=== PATIENT | male | born 1960 | race Caucasian/White ===

== ENCOUNTER 2024-09-07 09:00 | Day surgery (SDC) | payer OTHER, SELFPAY ==
[2024-09-07] VITALS (11 sets, daily range): BP systolic 99–139; BP diastolic 60–96; PULSE 67–88; RESP 10–20; TEMP 36.3–36.6; O2SAT 94–98; BMI 29.7
[2024-09-07] MEDS: fentaNYL CIT INJ 50 mCg/ML AMP 2ML (ASD USE ONLY) IV (11:40)
[2024-09-07] MEDS: MEPERIDINE INJ 25 MG/ML VIAL (ASD USE ONLY) 50 MG IV (11:42)
[2024-09-07] MEDS: SODIUM CHLORIDE 0.9% 500 ML 500 ML 20 ML IV (11:42)
[2024-09-07] MEDS: MIDAZOLAM INJ 1 MG/ML VIAL 2 ML (ASD USE ONLY) 2 MG IV (11:46)
== END 2024-09-07 12:40 | disposition home or self-care (01) ==
PROVIDERS: PCP Internal Medicine; Referring Provider Specialist; Visit Provider Specialist
PROC: 0DBE8ZX Excision of Large Intestine, Via Natural or Artificial Opening Endoscopic, Diagnostic (ICD-10-PCS; CPT 45380; principal; 2024-09-07 10:00)
DX: Z12.11 Encounter for screening for malignant neoplasm of colon (principal); K57.30 Diverticulosis of large intestine without perforation or abscess without bleeding; D17.79 Benign lipomatous neoplasm of other sites; K64.9 Unspecified hemorrhoids
CPT/HCPCS: 45378; A4649; J2175; J2250; J3010; J7040

== ENCOUNTER → 2024-11-08 | Outpatient (CLI) | payer OTHER, SELFPAY ==
--- NOTE | 2024-11-08 16:47 | EKG_ITS ---
[facility] Test Date: 2024-11-08 Pat Name: ADRIANE SOSA Department: Room: - Gender: Male Home Visits Nurse: LYNDSEY : 1960 Requested By: Misa Santos Order Number: [id number] Reading MD: Misa Santos Measurements Intervals [place] Rate: 94 P: 35 RI: 158 QRS: 4 QRSD: 96 T: 16 QT: 335 QTc: 419 Interpretive Statements SINUS RHYTHM POSSIBLE LEFT ATRIAL ENLARGEMENT [-0.1mV P WAVE IN V1/V2] Compared to ECG 12/02/2021 14:08:24 No significant changes /store/S0/[id number].pdf
== END | disposition home or self-care (01) ==
PROVIDERS: PCP Internal Medicine; Referring Provider Internal Medicine; Visit Provider Internal Medicine
DX: R07.9 Chest pain, unspecified (principal)
CPT/HCPCS: 93005

== ENCOUNTER 2025-02-12 16:58 | Emergency (ER) | payer OTHER, SELFPAY ==
--- NOTE | 2025-02-12 17:02 | EKG_ITS ---
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
[2025-02-12 17:08] VITALS: BP 117/83; PULSE 82; RESP 16; TEMP 36.7; O2SAT 97
--- NOTE | 2025-02-12 17:12 | XR_ITS ---
Examination: PA lateral chest 2 views Technique: Upright PA lateral chest 2 views Date and time: February 12, 2025, 1742 hrs. Indications: Chest pain today. Findings: Mild prominence left ventricle. No pneumonia or pulmonary edema. Moderate thoracic spondylosis. Impression: No active disease.
--- NOTE | 2025-02-12 17:12 | PD.EDRME ---
Rapid Medical Screening Exam E Arrival date/time: 02/12/25 16:58 64-year-old male with no known medical history presents to the emergency room with a chief complaint of sternal chest pain and palpitation x 1 day. Patient states he has had this chest pain intermittently for the last 2 months I have greeted and performed a focused initial assessment of this patient. A comprehensive ED assessment and evaluation of the patient, analysis of all test results, and completion of the medical decision making process will be conducted by additional ED providers. Chief Complaint: Arrhythmia/Palpitations Time Seen by Provider: 02/12/25 17:09 Vital signs: Vital Signs Temperature 98.1 F 02/12/25 17:08 Pulse Rate 82 02/12/25 17:08 Respiratory Rate 16 02/12/25 17:08 Blood Pressure 117/83 02/12/25 17:08 Pulse Oximetry (%) 97 02/12/25 17:08 Oxygen Delivery Method Room Air 02/12/25 17:08 Vital signs reviewed by provider: Yes
[2025-02-12 17:41] LABS: Basophils # (Auto) 0.0 Thou/mm3 (0.0-0.2); Basophils % (Auto) 0 % (0-2.5); Eosinophils # (Auto) 0.1 Thou/mm3 (0.0-0.5); Eosinophils % (Auto) 1 % (0-10); Hematocrit 43.0 % (41.0-53.0); Hemoglobin 15.0 g/dL (13.5-16.0); Immature Granulocytes Auto 0.02 Thou/mm3 (0.00-0.00); Lymphocytes # (Auto) 1.8 Thou/mm3 (1.0-4.8); Lymphocytes % (Auto) 21 % (10-50); Mean Corpuscular HGB Conc 34.9 g/dl (31.0-37.0); Mean Corpuscular Hemoglobin 31.3 pg (25.0-35.0); Mean Corpuscular Volume 90 fL (80-100); Monocytes # (Auto) 0.6 Thou/mm3 (0.0-0.8); Monocytes % (Auto) 7 % (0-12); Neutrophils # (Auto) 6.1 Thou/mm3 (1.8-7.7); Neutrophils % (Auto) 71 % (37-80); Nucleated Red Blood Cell # 0.00 Thou/mm3 (0.00-0.00); Nucleated Red Blood Cell % 0 /100 WBC (0); Platelet Count 177 Thou/mm3 (140-440); RDW Standard Deviation 44.3 fL (35.1-43.9); Red Blood Count 4.79 Miln/mm3 (4.50-5.90); White Blood Count 8.7 Thou/mm3 (3.8-10.6)
[2025-02-12 17:58] LABS: Collection Type, Urine Clean Catch; Squamous Epithelial Cell,Urine 0 /hpf (0-5)
[2025-02-12 18:06] LABS: B-Type Natriuretic Peptide < 20 pg/mL (0-100)
[2025-02-12 18:09] LABS: Alanine Aminotransferase 22 U/L (10-49); Albumin, Serum 4.3 gm/dL (3.4-4.8); Albumin/Globulin Ratio 1.7 (1.2-2.2); Alkaline Phosphatase 67 U/L (46-116); Anion Gap 11 (7-16); Aspartate Amino Transferase 24 U/L (0-34); BUN/Creatinine Ratio 12 Ratio (12-20); Bilirubin,Total 0.8 mg/dL (0.3-1.2); Blood Urea Nitrogen 12 mg/dL (9-23); Calcium 9.6 mg/dL (8.3-10.6); Calcium (Corrected) 9.6 mg/dL (8.5-10.1); Carbon Dioxide 29.1 mMol/L (20.0-31.0); Chloride 105 mMol/L (98-107); Creatinine (Component) 1.0 mg/dL (0.6-1.3); Estimated Creatinine Clearance 83.0 mL/min (>60); Globulin 2.5 gm/dL (2.3-3.5); Glucose 79 mg/dL (74-106); Magnesium 2.2 mg/dL (1.6-2.6); Osmolality,Calculated 287 (275-295); Potassium 3.8 mMol/L (3.4-5.1); Sodium 145 mMol/L (136-145); Total Protein 6.8 gm/dL (5.7-8.2); Troponin I < 0.020 ng/mL (0.0-0.045); eGFR > 60 See Note
[2025-02-12 18:12] LABS: INR 1.0 (0.9-1.3); Partial Thromboplastin Time 24.9 Seconds (22.0-36.0); Prothrombin Time 11.1 Seconds (9.0-12.2)
[2025-02-12 18:16] LABS: Bilirubin,Urine Negative (Negative); Blood,Urine Negative (Negative); Clarity,Urine Clear (Clear/Hazy); Color,Urine Yellow (Lt Yel-Yel); Culture Indicated,Urine Not Indicated; Glucose, Urine Negative (Negative); Ketones,Urine 1+ (Negative); Leukocyte Esterase,Urine Negative (Negative); Nitrite,Urine Negative (Negative); PH,Urine 6.0 (5.0-7.0); Protein,Urine Negative (Neg - Trace); RBC,Urine 2 /hpf (0-3); Specific Gravity,Urine 1.027 (1.001-1.035); Urobilinogen,Urine Negative mg/dL (0.0-1.0); WBC,Urine 1 /hpf (0-5)
--- NOTE | 2025-02-12 20:05 | EDNOTE_ITS ---
ED Arrhythmia Palp. RME/HPI General Chief Complaint: Arrhythmia/Palpitations Stated Complaint: PALPITATIONS, LIGHTHEADED Time Seen by Provider: 02/12/25 17:09 Arrival date/time: 02/12/25 16:58 RME / HPI RME / HPI narrative: 02/12/25 16:58 64-year-old male with no known medical history presents to the emergency room with a chief complaint of sternal chest pain and palpitation x 1 day. Patient states he has had this chest pain intermittently for the last 2 months I have greeted and performed a focused initial assessment of this patient. A comprehensive ED assessment and evaluation of the patient, analysis of all test results, and completion of the medical decision making process will be conducted by additional ED providers. ------ See MDM for Dr. Medrano's HPI documentation. Related Data Home Medications ?Medication ?Instructions ?Recorded ?Confirmed No Known Home Medications 11/13/18 04/0 09/28 Allergies Allergy/AdvReac Type Severity Reaction Status Date / Time diphenhydramine (From Allergy Severe Agitated Verified 02/12/25 17:01 Benadryl) Review of Systems Review of Systems Systems Reviewed: All systems reviewed, normal except as documented Past Medical History Past Medical History NEUROLOGIC: Positive Neurological Disorders and Migraine; Negative Seizures CARDIAC: Negative Cardiac Disorders or Congestive Heart Failure RESPIRATORY: Positive Sleep Apnea; Negative Chronic Obstructive Pulmonary Disease (COPD) GASTROINTESTINAL: Positive Hemorrhoids GENITOURINARY: Negative Genitourinary Disorders or Renal Disease MUSCULOSKELETAL: Positive Arthritis ENDOCRINE: Negative Diabetes Mellitus Type 1 or Diabetes Mellitus Type 2 HEMATOLOGIC: Negative Anemia OTHER HISTORY: Negative Blood Transfusions or Anesthesia Reactions Social History SMOKING STATUS: Never smoker ED Exam Narrative Physical exam: See MDM for Dr. Medrano's physical exam documentation. Course Course Course Narrative: CXR is ordered for determining the etiology of palpitations. Quality Measures none Orders Category Date Time Status EKG (ED ONLY) *Do not use* NOW Care 02/12/25 17:03 Completed EKG (ED Only) Stat Exams 02/12/25 17:02 Draft XR chest 2V Stat Exams 02/12/25 17:12 Completed B-Type Natriuretic Peptide Stat Lab 02/12/25 17:24 Completed CBC Stat Lab 02/12/25 17:24 Completed Comprehensive Metabolic Panel Stat Lab 02/12/25 17:24 Completed Magnesium Stat Lab 02/12/25 17:24 Completed Partial Thromboplastin Time Stat Lab 02/12/25 17:24 Completed Prothrombin Time with INR Stat Lab 02/12/25 17:24 Completed Troponin I Stat Lab 02/12/25 17:24 Completed Urinalysis, C/S if Indicated Stat Lab 02/12/25 17:55 Completed Vital Signs Vital signs: Vital Signs Temperature 98.1 F 02/12/25 17:08 Pulse Rate 82 02/12/25 17:08 Respiratory Rate 16 02/12/25 17:08 Blood Pressure 117/83 02/12/25 17:08 Pulse Oximetry (%) 97 02/12/25 17:08 Oxygen Delivery Method Room Air 02/12/25 17:08 Arrhythmia/Palpitations MDM Narrative MDM Narrative:: This section includes all my notes and documentations, including HPI, PE, and ED course. Dawson Medrano MD HPI: 64yo male with no significant past medical history here with intermittent palpitations for the last couple months. No cough or fever. No alcohol or illicit drug use. No unusual fatigue or malaise. No syncope or near syncope. No nausea or vomiting. No shortness of breath. No unusual leg pain or swelling. No other complaints reported. ROS: All negative except as documented in HPI. Physical Exam: General: Alert and oriented. No acute distress when remaining still. Eyes: Conjunctivae and lids clear. ENT: No nasal congestion. Neck: Supple. Heart: RRR. Lungs: No respiratory distress. Good air movement. No rhonchi, wheezing, rales. Abdomen: Soft and nontender. Skin: Warm and dry. Neuro: Alert and oriented X 3. I reviewed all diagnostic test results. My interpretation of the EKG is sinus rhythm with nonspecific ST-T changes. My interpretation of the chest x-ray is NAD. Blood tests and urine tests are unremarkable. At this point, diagnoses include: Palpitations with unclear etiology Recommended more outpatient cardiac workup. Based on my best medical judgment, made decision no further evaluation or treatment indicated at this time. Patient understands and agrees to the discharge instructions customized and printed, see below. Discharge instructions from Dr. Medrano: 1. After extensive evaluation, there is no life-threatening condition. Such as heart attack or pneumothorax (collapsed lung). 2. But this doesn't mean you do not have any underlying heart condition(s). 3..See a private doctor on 02/13/2025 for recheck. To make sure there is no serious underlying heart condition, ask to help you get more tests for your heart that cannot be done here in the ER. Such as Holter Monitor (cardiac monitoring at home from a day to even a month), heart stress test (on treadmill or with medication), echocardiogram (imaging of your heart structures), heart catherization (checking for blockages in your heart arteries), and a referral to see a Doctor Chiropractic. 4. Seek immediate medical care with worsening or with any concerns. Dawson Medrano MD Patient data External records reviewed:: [facility] previous records (Per chart review, patient has no previous ED visits or admissions to this facility.) Clinical information provided by:: patient Social determinants that could affect healthcare access:: none Patient has the following chronic illnesses:: none How is presenting disease/condition affected by chronic disease/condition?: no chronic disease Evaluation data The following diagnostics were reviewed and interpreted by me:: lab results, radiology exam(s) and EKG tracing(s) (My interpretation of the EKG is: Sinus rhythm (94 bpm) with nonspecific ST-T changes. Dawson Medrano MD) Lab and/or radiology exams considered but not ordered:: none Interpretation Summary: I reviewed all diagnostic test results. My interpretation of the EKG is sinus rhythm with nonspecific ST-T changes. My interpretation of the chest x-ray is NAD. Blood tests and urine tests are unremarkable. Medications / Prescriptions Medications or Prescriptions considered but not ordered:: none Medication administrations:: none Consultations Consultation(s) initiated? (list below): No Diagnosis Differential diagnosis arrhythmia/palpitations: palpitations, anxiety, sinus tachycardia, artial fibrillation, artial flutter and ventricular premature beats Most likely diagnosis given after review of the tests above:: Palpitations with unclear etiology Admission Indicated Admission indicated?: not indicated Explain why admission is indicated or not indicated:: With no condition needing emergent intervention, there was no indication for adm ission. Admission Request Was there a request for admission?: No Disposition Plan Disposition Plan: Discharge Discharge Attestation Discharge Attestation: The patient and all family members were given an opportunity to ask questions and understood the discharge instructions. Discharge instructions specifically effects, indications for sooner follow up or return to the emergency department, and the expected course of current diagnosis. Patient condition: Stable Discharge Plan Plan Patient Disposition: HOME (Self Care) Prescriptions/Referrals Prescriptions/Med Rec: No Action No Known Home Medications Referrals: Misa Santos MD [Primary Care Provider, Nephrology] - In 1 week Problem List Clinical Impression: Palpitations Patient/Caregiver Discharge Instructions Discharge Activity: activity as tolerated Education Materials: ED Palpitations Additional Instructions: Discharge instructions from Dr. Medrano: 1. After extensive evaluation, there is no life-threatening condition.? Such as heart attack or pneumothorax (collapsed lung). 2. But this doesn't mean you do not have any underlying heart condition(s). 3..See a private doctor on 02/13/2025 for recheck. To make sure there is no serious underlying heart condition, ask to help you get more tests for your heart that cannot be done here in the ER.? Such as Holter Monitor (cardiac monitoring at home from a day to even a month), heart stress test (on treadmill or with medication), echocardiogram (imaging of your heart structures), heart catherization (checking for blockages in your heart arteri es), and a referral to see a Doctor Chiropractic. 4. Seek immediate medical care with worsening or with any concerns.? Print Language: Persian Stand Alone Forms: Christina Award Info., Patient Portal Info Letter
[2025-02-12 20:24] VITALS: BP 127/73; PULSE 57; RESP 18; O2SAT 98
== END 2025-02-12 20:25 | disposition home or self-care (01) ==
PROVIDERS: Nurse Practitioner Family; Emergency Provider Emergency Medicine; PCP Internal Medicine
DX: R00.2 Palpitations (principal); R07.2 Precordial pain
CPT/HCPCS: 36415; 71046; 80053; 81001; 83735; 83880; 84484; 85025; 85610; 85730; 93005; 99283

== ENCOUNTER 2025-02-18 22:09 | Inpatient (IN) | payer OTHER, SELFPAY ==
[2025-02-18 22:09] VITALS: BMI 27.1
--- NOTE | 2025-02-18 22:12 | EKG_ITS ---
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
[2025-02-18 22:15] VITALS: BP 139/82; PULSE 78; RESP 18; TEMP 36.4; O2SAT 96
--- NOTE | 2025-02-18 22:22 | XR_ITS ---
Examination: AP chest single view Technique: AP portable upright chest single view Date and time: February 18, 2025 1030 hrs., Comparison 02/12/2025 Indications: Onset chest pain today. Findings: Mild prominence left ventricle Ectatic thoracic aorta. No pneumonia or pulmonary edema Moderate osteopenia Impression: No pneumonia or pulmonary edema
--- NOTE | 2025-02-18 22:23 | PD.EDRME ---
Rapid Medical Screening Exam RME Arrival date/time: 02/18/25 22:09 This is a case of 64-year-old male with no medical history came in in the emergency room due to chest pain and palpitation today patient states that he has chest pain on and off with palpitation for 1 month already and waiting to be seen by the command and control officer recurrence of the symptoms this patient decided to sought consult here in the emergency room no other symptoms no shortness of breath Chief Complaint: Arrhythmia/Palpitations Time Seen by Provider: 02/18/25 22:10 Vital signs: Vital Signs Temperature 97.6 F 02/18/25 22:15 Pulse Rate 78 02/18/25 22:15 Respiratory Rate 18 02/18/25 22:15 Blood Pressure 139/82 H 02/18/25 22:15 Pulse Oximetry (%) 96 02/18/25 22:15 Oxygen Delivery Method Room Air 02/18/25 22:15
[2025-02-18 22:43] VITALS: PULSE 85
[2025-02-18 22:44] LABS: Basophils # (Auto) 0.0 Thou/mm3 (0.0-0.2); Basophils % (Auto) 0 % (0-2.5); Eosinophils # (Auto) 0.2 Thou/mm3 (0.0-0.5); Eosinophils % (Auto) 2 % (0-10); Hematocrit 42.1 % (41.0-53.0); Hemoglobin 14.9 g/dL (13.5-16.0); Immature Granulocytes Auto 0.02 Thou/mm3 (0.00-0.00); Lymphocytes # (Auto) 2.1 Thou/mm3 (1.0-4.8); Lymphocytes % (Auto) 29 % (10-50); Mean Corpuscular HGB Conc 35.4 g/dl (31.0-37.0); Mean Corpuscular Hemoglobin 31.6 pg (25.0-35.0); Mean Corpuscular Volume 89 fL (80-100); Monocytes # (Auto) 0.6 Thou/mm3 (0.0-0.8); Monocytes % (Auto) 8 % (0-12); Neutrophils # (Auto) 4.4 Thou/mm3 (1.8-7.7); Neutrophils % (Auto) 60 % (37-80); Nucleated Red Blood Cell # 0.00 Thou/mm3 (0.00-0.00); Nucleated Red Blood Cell % 0 /100 WBC (0); Platelet Count 158 Thou/mm3 (140-440); RDW Standard Deviation 44.3 fL (35.1-43.9); Red Blood Count 4.71 Miln/mm3 (4.50-5.90); White Blood Count 7.3 Thou/mm3 (3.8-10.6)
[2025-02-18 22:58] LABS: D-Dimer < 250 ng/mL (<600)
[2025-02-18 22:59] LABS: B-Type Natriuretic Peptide 31 pg/mL (0-100)
--- NOTE | 2025-02-18 23:02 | EDNOTE_ITS ---
ED Arrhythmia Palp. RME/HPI General Chief Complaint: Arrhythmia/Palpitations Stated Complaint: HEART PALPITATIONS Time Seen by Provider: 02/18/25 22:10 Arrival date/time: 02/18/25 22:09 RME / HPI RME / HPI narrative: 02/18/25 22:09 This is a case of 64-year-old male with no medical history came in in the emergency room due to chest pain and palpitation today patient states that he has chest pain on and off with palpitation for 1 month already and waiting to be seen by the hr representative recurrence of the symptoms this patient decided to sought consult here in the emergency room no other symptoms no shortness of breath DR. LANG MAIN ED EVALUATION: Patient evaluated for new onset palpitations on 02/12/2025. Patient reports skipping in which patient becomes lightheadedness and syncopal state lasting 60 seconds. Reports mild chest discomfort. Pain is worse when assuming upright position. No diaphoresis, nausea, or vomiting. No flu-like symptoms. Cardiac risk-factors negative for Diabetes, HTN, Cholesterol, and Tobacco, although does report positive family history of heart disease. PE risk factors negative for long-distance travel, surgery, prior DVT or hormonal therapy. Allergies: Benadryl. PMH: unremark PSH: Noncontributory. Social: Nonsmoker, nondrinker, no illicit drug abuse. Related Data Home Medications ?Medication ?Instructions ?Recorded ?Confirmed No Known Home Medications 11/13/18 04/09/28 Allergies Allergy/AdvReac Type Severity Reaction Status Date / Time diphenhydramine (From Allergy Severe Agitated Verified 02/18/25 22:11 Benadryl) Review of Systems Review of Systems Systems Reviewed: All systems reviewed, normal except as documented Past Medical History Past Medical History NEUROLOGIC: Positive Neurological Disorders and Migraine RESPIRATORY: Positive Sleep Apnea GASTROINTESTINAL: Positive Hemorrhoids MUSCULOSKELETAL: Positive Musculoskeletal Disorders and Arthritis Surgical History SURGICAL: Positive Abdominal Surgery and Knee Sx ED Exam Narrative Physical exam: GEN. APPEARANCE: The patient is alert awake oriented X-3 in no distress, lying down comfortably, does not look ill/toxic. Patient has good eye contact. Patient is cooperative. C/o occasional palpitations. VITALS: All vitals were reviewed and the pulse ox is 96% on room air which is normal according to my interpretation. HEENT: Normocephalic, atraumatic. Pupils are equal and reactive. Oral mucosa is moist. Patent Nares NECK: Supple, nontender, no thyromegaly, no meningismus, no JVD, no step offs CHEST: Symmetrical, atraumatic, and with equal expansion , Nontender on palpation no deformity and no crepitus. CARDIOVASCULAR: Occasional extrasystoles no murmur or gallop rub. LUNGS: Clear to auscultation bilaterally with symmetrical chest rise. No laboring tachypnea or wheezing. No intercostal subcostal retraction. No rales and no rhonchi. ABDOMEN: Soft, flat, nontender to palpation, no guarding or rebound tenderness. There are no abnormal masses palpated. Active and normal bowel sounds. EXTREMITIES: No palpable calf tenderness. No edema. No cyanosis. Patient is able to move all 4 extremities well, with full ROM and good CSM. SKIN: Warm and dry, no jaundice or rashes noted. MUSCULOSKELETAL: No lubar or midline bony tenderness. There is no CVA tenderness. No paraspinal muscle spasm or tenderness. NEURO: Patient is GORMAN x 4, Cranial nerves II through XII grossly intact. There is no focal neurologic deficits noted. GCS is 15, PNS and ACCORDION MAKER appear grossly intact. PSYCHIATRIC: Patient is in normal mood and affect, cooperative, no SI or HI or hallucinations. Course Course Course Narrative: CXR was ordered for determining the etiology of shortness of breath. Quality Measures none Orders Category Date Time Status EKG (ED ONLY) *Do not use* NOW Care 02/18/25 22:12 Completed EKG (ED Only) Stat Exams 02/18/25 22:12 Draft XR chest 1V portable Stat Exams 02/18/25 22:22 Completed BNP [B-Type Natriuretic Peptide] Stat Lab 02/18/25 22:31 Completed CBC Stat Lab 02/18/25 22:31 Completed CMP [Comprehensive Metabolic Panel] Stat Lab 02/18/25 22:31 Received D-Dimer Stat Lab 02/18/25 22:31 Completed TSH [Thyroid Stimulating Hormone] Stat Lab 02/18/25 22:31 Received Troponin I Stat Lab 02/18/25 22:31 Received Urinalysis Stat Lab 02/18/25 22:23 Ordered Vital Signs Vital signs: Vital Signs Temperature 97.6 F 02/18/25 22:15 Pulse Rate 78 02/18/25 22:15 Respiratory Rate 18 02/18/25 22:15 Blood Pressure 139/82 H 02/18/25 22:15 Pulse Oximetry (%) 96 02/18/25 22:15 Oxygen Delivery Method Room Air 02/18/25 22:15 Arrhythmia/Palpitations MDM Narrative MDM Narrative:: Scribe Attestation: I, Zandra Whelan, am scribing for and in the presence of Dr. Lang. Provider Notation: Although this document has been carefully reviewed, there may still be some phonetic and other typographical errors. These errors are purely grammatical due to imperfections in the software program and should not be construed in any way to compromise the substance of the patient's medical care during this visit. Patient evaluated for new onset palpitations on 02/12/2025. Patient reports skipping in which patient becomes lightheadedness and syncopal state lasting 60 seconds. Please see PE findings. Laboratory markers demonstrate normal WBC, no anemia or thrombocytopenia. Low normal potassium, normal renal function, and undetected Troponin. UA without UTI. EKG demonstrates occasional PVC's and multiple trigeminy. No chest pain reported although sustained monomorphic sustained ventricular tachycardia. Amiodarone protocol initiated. Patient remained hemodynamically stable. Consulted hospitalist who agrees to admit. Patient data External records reviewed:: [facility] previous records (Reviewed prior ED records from 02/12/25. Patient was seen for Palpitations.) Clinical information provided by:: patient Social determinants that could affect healthcare access:: none Patient has the following chronic illnesses:: Migraine, Sleep Apnea, Hemorrhoids, Arthritis How is presenting disease/condition affected by chronic disease/condition?: uneffected by Evaluation data The following diagnostics were reviewed and interpreted by me:: lab results, radiology exam(s) and EKG tracing(s) (EKG shows normal sinus rhythm at 82, no acute ST msegment changes, axis leftward, occasional ventricular ectopy, intervals are normal, per my interpretation.) Lab and/or radiology exams considered but not ordered:: None Interpretation Summary: RADIOLOGY Chest X-Ray: Findings: Mild prominence left ventricle Ectatic thoracic aorta. No pneumonia or pulmonary edema Moderate osteopenia Impression: No pneumonia or pulmonary edema. Medications / Prescriptions Medications or Prescriptions considered but not ordered:: None Medication administrations:: See above if any Consultations Consultation(s) initiated? (list below): Yes Consultation #1 (Physician, Specialty, Details): Hospitalist made aware of the patient?s HPI, PMHx, lab and/or radiology results. Treatment plan was discussed. Will admit for further evaluation and management. Accepts patient for admission. Time: 23:44 Consultation #2 (Physician, Specialty, Details): Dr. Link made aware of the patient?s HPI, PMHx, lab and/or radiology results. Discussed treatment plan. Will consult an admission to the hospitalist. Time: 23:53 Diagnosis Differential diagnosis arrhythmia/palpitations: palpitations, anxiety, sinus tachycardia, artial fibrillation, artial flutter, ventricular premature beats, supraventricular tachycardia, ventricular tachycardia and WPW Most likely diagnosis given after review of the tests above:: Ventricular tachycardia Admission Indicated Admission indicated?: indicated Explain why admission is indicated or not indicated:: Ventricular tachycardia Admission Request Was there a request for admission?: Yes Admission Attestation Admission request attestation: Discussed case with [] from Hospitalist service regarding admission. Discussed patients ED course, exam findings, labs, and radiology results. The Hospitalist [agrees,declines] to accept the patient for admission. Disposition Plan Disposition Plan: Admit Discharge Plan Plan Patient Disposition: Admit Acute Care w/in Hospital Problem List Clinical Impression: Ventricular tachycardia
[2025-02-18 23:04] LABS: Alanine Aminotransferase 21 U/L (10-49); Albumin, Serum 4.2 gm/dL (3.4-4.8); Albumin/Globulin Ratio 1.7 (1.2-2.2); Alkaline Phosphatase 82 U/L (46-116); Anion Gap 12 (7-16); Aspartate Amino Transferase 27 U/L (0-34); BUN/Creatinine Ratio 13 Ratio (12-20); Bilirubin,Total 0.5 mg/dL (0.3-1.2); Blood Urea Nitrogen 12 mg/dL (9-23); Calcium 9.5 mg/dL (8.3-10.6); Calcium (Corrected) 9.5 mg/dL (8.5-10.1); Carbon Dioxide 25.7 mMol/L (20.0-31.0); Chloride 106 mMol/L (98-107); Creatinine (Component) 0.9 mg/dL (0.6-1.3); Estimated Creatinine Clearance 92.2 mL/min (>60); Globulin 2.5 gm/dL (2.3-3.5); Glucose 127 mg/dL (74-106); Osmolality,Calculated 288 (275-295); Potassium 3.5 mMol/L (3.4-5.1); Sodium 144 mMol/L (136-145); Thyroid Stimulating Hormone 1.74 uIU/mL (0.55-4.78); Total Protein 6.7 gm/dL (5.7-8.2); Troponin I < 0.020 ng/mL (0.0-0.045); eGFR > 60 See Note
[2025-02-18 23:14] LABS: Collection Type, Urine Voided; Squamous Epithelial Cell,Urine 0 /hpf (0-5)
[2025-02-18 23:18] LABS: Bilirubin,Urine Negative (Negative); Blood,Urine Negative (Negative); Clarity,Urine Clear (Clear/Hazy); Color,Urine Yellow (Lt Yel-Yel); Glucose, Urine Negative (Negative); Ketones,Urine Negative (Negative); Leukocyte Esterase,Urine Negative (Negative); Nitrite,Urine Negative (Negative); PH,Urine 6.0 (5.0-7.0); Protein,Urine Negative (Neg - Trace); RBC,Urine 1 /hpf (0-3); Specific Gravity,Urine 1.026 (1.001-1.035); Urobilinogen,Urine Negative mg/dL (0.0-1.0); WBC,Urine < 1 /hpf (0-5)
[2025-02-18 23:25] LABS: Amphetamine/Methamp Scrn,U Negative (Negative); Barbiturate Screen,Urine Negative (Negative); Benzodiazepines Screen,Urine Negative (Negative); Benzoylecgonine Screen, Ur Negative (Negative); Fentanyl Screen,Urine Negative (Negative); Opiate Screen,Urine Negative (Negative); THC Screen,Urine Negative (Negative)
[2025-02-18 23:28] LABS: Alcohol, Blood Medical < 3.0 mg/dL (0-10.0)
[2025-02-18] MEDS: SODIUM CHLORIDE 0.9% 1000 ML 1,000 ML 999 ML IV (23:34)
[2025-02-18 23:49] VITALS: BP 146/93; PULSE 79; RESP 17; TEMP 36.6; O2SAT 97
[2025-02-19] VITALS (10 sets, daily range): BP systolic 103–152; BP diastolic 58–92; PULSE 54–101; RESP 14–23; TEMP 36.1–36.4; O2SAT 96–98; BMI 28.4
[2025-02-19] MEDS: AMIODARONE 150 MG IVPB 150 MG/100 ML BAG 600 MG IV (00:03)
[2025-02-19] MEDS: AMIODARONE 360 MG IVPB 360 MG/200 ML BAG 33.333 MG IV (00:16)
[2025-02-19 00:24] LABS: Magnesium 1.9 mg/dL (1.6-2.6)
--- NOTE | 2025-02-19 00:27 | ECHO_ITS ---
Transthoracic Echo Report Ht (in): 72 Wt (lb): 200 Exam Location: Echo Lab Status: Inpatient Family Consumer Science Teacher: Tatiana Bales Indications: Procedure Performed: BP: 108 / 69 HR: 61 MEASUREMENTS (Male / Female) Normal Values 2D ECHO LV Diastolic Diameter PLAX 4.6 cm 4.2 - 5.9 / 3.9 - 5.3 cm LV Systolic Diameter PLAX 2.8 cm IVS Diastolic Thickness 1.2 cm 0.6 - 1.0 / 0.6 - 0.9 cm LVPW Diastolic Thickness 1.2 cm 0.6 - 1.0 / 0.6 - 0.9 cm LV Relative Wall Thickness 0.5 LVOT Diameter 2.0 cm LA Volume Index 23.2 cm?/m? 16 - 28 cm?/m? Ascending Aorta Diameter 3.4 cm M-MODE AV Cusp Separation MM 1.8 cm DOPPLER AV Peak Velocity 119.0 cm/s AV Peak Gradient 5.7 mmHg AV Mean Gradient 3.0 mmHg AV Velocity Time Integral 26.8 cm AI Peak Velocity 235.0 cm/s AI Peak Gradient 22.1 mmHg AI Pressure Half Time 789.0 ms LVOT Peak Velocity 92.4 cm/s LVOT Peak Gradient 3.4 mmHg LVOT Velocity Time Integral 20.4 cm LVOT Cardiac Index 1809.5 cm?/min?m? AV Area Cont Eq vti 2.4 cm? AV Area Cont Eq pk 2.4 cm? MV Area PHT 4.4 cm? Mitral E Point Velocity 76.4 cm/s Mitral A Point Velocity 72.1 cm/s Mitral E to A Ratio 1.1 LV E' Lateral Velocity 10.0 cm/s Mitral E to LV E' Lateral Ratio 7.6 LV E' Septal Velocity 6.0 cm/s Mitral E to LV E' Septal Ratio 12.8 TR Peak Velocity 200.0 cm/s TR Peak Gradient 16.0 mmHg PV Peak Velocity 89.6 cm/s PV Peak Gradient 3.2 mmHg FINDINGS Left Ventricle Normal left ventricular size, wall thickness, systolic function with no obvious regional wall motion abnormalities. Normal left ventricular diastolic filling pattern for age. The ejection fraction is visually estimated at 60-65 %. Right Ventricle The right ventricle is normal in size and systolic function. The estimated right ventricular systolic pressure,26mmHg. Left Atrium The left atrium is normal by two-dimensional, color flow and Doppler imaging with no structural abnormalities, no thrombus formation present. Right Atrium The right atrium is normal by two-dimensional imaging, color flow and Doppler imaging with no structural abnormalities, no thrombus formation present. Atrial Septum The interatrial septum appears normal with no evidence of a shunt. Aorta The aorta is normal by two-dimensional, color flow and Doppler interrogation. Mitral Valve The mitral valve is normal by two-dimensional, color flow and Doppler interrogation. Mild mitral regurgitation. Aortic Valve The aortic valve is trileaflet and normal by two-dimensional, color flow and Doppler interrogation. There is no significant aortic valve regurgitation. Tricuspid Valve The tricuspid valve is normal by two-dimensional, color flow and Doppler interrogation. There is mild tricuspid valve regurgitation. Pulmonic Valve The pulmonic valve is not well visualized. Mild pulmonic valve regurgitation. Vessels The pulmonary artery appears normal. The inferior vena cava pulmonary and hepatic veins appear normal. Pericardium The pericardium is normal by two-dimensional imaging. There is no significant pericardial effusion. CONCLUSIONS Indication: symptomatic Tahcyarrythmia Normal left ventricular size and function. Approximate ejection fraction is 60- 65%. . Normal Right ventricular size and function. RVSP 26mmHg Normal tricuspid aortic valve with mild thickening with trace to mild aortic valve regurgitation. Mild pulmonic valve regurgitation. Mild tricuspid valve regurgitation. Nena Chavarria (Electronically Signed) Final Date: 19 February 2025 17:27
--- NOTE | 2025-02-19 00:33 | PD.RESHP ---
Documentation for date of: 02/19/25 [facility] History of Present Illness Chief complaint: chest palpitations History of present illness: Mr. Luis is a 64 year-old male with no significant past medical history who presented to the ED on 02/18/2025 with with chief complaint of chest palpitation and lightheadedness. Patient reports last 2 months he has been having chest palpitation and head uribe . He describes chest palpitation as intermittent chest discomfort with heart beating fast that worsened and became more frequent for the last few days. The chest palpitation last few minutes and is associated with lightheadedness (head uribe). The chest discomfort worsened with upright position and relieved when lying down. Patient denies falls, dizziness, chest pain, shortness of breath, headache, fever and diaphoresis. No recent sick contact and flu-like symptoms. His primary provider is Dr. Santos. He was recently evaluated for palpitations and was referred to sr vice president. Patient said that he has an upcoming appointment for . ED Course: -Initial vitals were BP 139/82, pulse 78, RR 18, temp 97.6 (afebrile), O2 sat 96% on room air. -Labs shows normal WBC, no anemia or thrombocytopenia. Low normal potassium, normal renal function, and undetected Troponin. TSH normal. UA without UTI. -Imaging included EKG demonstrates sinus rhythm, HR 82, occasional PVC's and multiple trigeminy, but no acute ST changes. CXR No pneumonia or pulmonary edema However, while in ED, he was noted to have frequent and prolonged arrhythmia resembling VT. Cardiology was consulted by ED physician who recommended admission and AMIODARONE GGT. -In the ED, patient was given 1 L NS, amiodarone GGT, 40 meq KCl, Mag -Patient was admitted for tachyarrhythmia management. Review of Systems Review of systems otherwise negative except what is mentioned above. Past Medical History: Unremarkable Family History: Mother and CHF, . Father has CHF Surgical History: Appendectomy, hernia repair, arthroscopy bilateral knee Social History: Used to chew tobacco 12 years ago. Denies current alcohol use, denies recreational drug use. . Works as a construction project manager. Born [place] raised in the [place]. Current Medications: Multivitamin, 81 mg ASA Allergies: Benadryl Exam Vital Signs Temp Pulse Resp BP Pulse Ox O2 Del Method 97.8 F 82 17 121/92 H 97 Room Air 02/18/25 23:49 02/19/25 00:16 02/18/25 23:49 02/19/25 00:16 02/18/25 23:49 02/18/25 23:49 Narrative Exam General: Alert, no acute distress.Sitting comfortably in bed, pleasantly conversant. Skin: Warm, dry, intact. No rash or ecchymoses. Head: Normocephalic, atraumatic. Eye: Normal conjunctiva, PERRL. Throat: Oral mucosa moist. No obvious lesions in oropharynx. Cardiovascular: Tachycardic and irregular rhythm, no murmur, +S1/S2. Respiratory: Lungs are clear to auscultation, respirations unlabored, no crackles, no wheezing. Gastrointestinal: Soft, nontender, non-distended. No guarding or rebound tenderness. Extremities: No edema, no cyanosis, no clubbing. Neuro: Alert and oriented x3. GCS is 15.No focal deficits observed. Conversant, moving all extremities. No overt cerebellar signs/incoordination. Psychiatric: Cooperative, appropriate affect Results: Labs 02/18/25 22:31 02/18/25 22:31 Labs: Short CBC 02/18/25 Range/Units 22:31 WBC 7.3 (3.8-10.6) Thou/mm3 Hgb 14.9 (13.5-16.0) g/dL Hct 42.1 (41.0-53.0) % Plt Count 158 (140-440) Thou/mm3 BMP 02/18/25 22:31 Sodium 144 Potassium 3.5 Chloride 106 Carbon Dioxide 25.7 BUN 12 Creatinine 0.9 Glucose 127 H Calcium 9.5 Cardiac Enzymes 02/18/25 Range/Units 22:31 Troponin I < 0.020 (0.0-0.045) ng/mL Liver Function 02/18/25 Range/Units 22:31 Total Bilirubin 0.5 (0.3-1.2) mg/dL AST 27 (0-34) U/L ALT 21 (10-49) U/L Alkaline Phosphatase 82 (46-116) U/L Albumin 4.2 (3.4-4.8) gm/dL Urine 02/18/25 Range/Units 23:05 Urine Color Yellow (Lt Yel-Yel) Urine Clarity Clear (Clear/Hazy) Urine pH 6.0 (5.0-7.0) Ur Specific [place] 1.026 (1.001-1.035) Urine Protein Negative (Neg - Trace) Urine Glucose (UA) Negative (Negative) Quality Measures Quality Measures none Medications Home Medications and Allergies Home Medications ?Medication ?Instructions ?Recorded ?Confirmed ?Type aspirin 81 mg tablet 81 mg PO QDAY 02/19/25 02/19/25 History multivitamin (Daily Multi-Vitamin 1 tab PO QDAY 02/19/25 02/19/25 History tablet) Allergies Allergy/AdvReac Type Severity Reaction Status Date / Time diphenhydramine (From Allergy Severe Agitated Verified 02/18/25 22:11 Benadryl) Visit Medications Acetaminophen (Acetaminophen 325 Mg Tablet) 650 mg PO Q4HR PRN PRN Reason: FEVER >101 Stop: 03/21/25 00:26 Heparin Sodium (Porcine) (Heparin Sod Inj 5000 Unit/Ml Vial) 5,000 unit SC Q8HR [facility] Stop: 03/05/25 05:59 Amiodarone HCl/Dextrose (Nexterone Ivpb) 360 mg in 200 mls @ 33.333 mls/hr IV .Q6H ONE Stop: 02/19/25 05:39 Last Admin: 02/19/25 00:16 Dose: 33.333 mls/hr Amiodarone HCl/Dextrose (Nexterone Ivpb) 360 mg in 200 mls @ 16.667 mls/hr IV .Q12H AMADO Stop: 02/19/25 23:40 Magnesium Sulfate (Magnesium Sulfate Ivpb) 2 gm in 50 mls @ 25 mls/hr IV X1 ONE Stop: 02/19/25 02:30 Discontinued Medications Sodium Chloride (Ns) 1,000 mls @ 999 mls/hr IV .Q1H1M ONE Stop: 02/19/25 00:20 Last Infusion: 02/19/25 00:28 Dose: Infused Amiodarone HCl/Dextrose (Nexterone Ivpb) 150 mg in 100 mls @ 600 mls/hr IV .Q10M ONE Stop: 02/18/25 23:50 Last Infusion: 02/19/25 00:15 Dose: Infused Potassium Chloride (Potassium Chloride 20 Meq Tabcr) 40 meq PO X1 ONE Stop: 02/19/25 00:05 Last Admin: 02/19/25 00:23 Dose: 40 meq Assessment & Plan Plan Mr. Luis is a 64 year-old male with no significant past medical history who presented to the ED on 02/18/2025 with with chief complaint of chest palpitation and lightheadedness. Admitted for tachyarrhythmia management. # Symptomatic tachyarrhythmia Patient presented with worsening intermittent chest palpitation for the last 2months with positional lightheadedness. Causes of tachyarrhythmia may be stimulants for which pt reports taking 3-4 cups of coffee/day, maybe due to electrolyte disturbances as pt K low normal and Mg is low. Less likely due to heart disease as patient has no history or risk factor as DM, HTN, HLD, Not cause by hyperthyroidism as TSH normal. Low suspicion for systemic causes as pt was afebrile,non-septic, no leukocytosis, vitals stable. No chest pain reported although sustained monomorphic sustained tachyarrhythmia, suspicion for ventricular tachycardia on telemetry. EKG shows normal sinus rhythm at 82, no acute ST segment changes occasional ventricular premature complexes. Troponin undetected. ED doctor consulted cardiology Dr. Link, repeat EKG showed normal sinus rhythm, however on telemetry noted to have frequent and prolonged arrhythmia resembling VT. Inspector Advanced [employer] recommended admission and AMIODARONE GGT protocol initiated. Given magnesium and potassium. Patient remained hemodynamically stable. CXR shows no pneumonia or pulmonary edema -Continue amiodarone ggt - On telemetry - Repeat cardiac troponin X1 - Cardiac echo - Lipid panel - Hemoglobin A1c - TSH level - Tylenol as needed for pain - Cardiology will follow patient, appreciate recommendations - Maintain potassium >4.0 and magnesium >2.0 Hospital management: Lines: peripheral IV Diet: NPO DVT prophylaxis: Heparin SC Disposition: tele tachyarrhythmia management CODE STATUS: Full code Patient seen and assessed under supervision of attending physician and discuss with senior resident Dr. Ortiz PGY-2 Edna Morton MD PGY-1, Internal Medicine Please note: this document was transcribed using voice recognition technology; minor inaccuracies may be present. Attending Provider Attestation/Addendum 64-year-old male patient with no significant past medical history complaining of dizziness, palpitations and lightheadedness at work especially when she gets up. Family history is significant for heart disease. The patient does not drink or smoke. It was noted that he was having V. tach initially. Patient was started on amiodarone drip. He was admitted to telemetry. Cardiology evaluation pending. I discussed with and supervised the resident physician who took care of this patient. I agree with the assessment and plan as above.
[2025-02-19] MEDS: Magnesium Sulfate 2 GM Ivpb 2 GM/50 ML BAG IV (00:39)
[2025-02-19] MEDS: HEPARIN SOD INJ 5000 UNIT/ML VIAL SC ×3 (05:12→21:15)
[2025-02-19] MEDS: AMIODARONE 360 MG IVPB 360 MG/200 ML BAG 16.667 MG IV (06:22)
--- NOTE | 2025-02-19 07:37 | ESPR_ITS ---
Documentation for date of: 02/19/25 Subjective Subjective Interval history: Took over the care from hospitalist team. Admitted overnight. Per resident note-Mr. Luis is a 64 year-old male with no significant past medical history who presented to the ED on 02/18/2025 with with chief complaint of chest palpitation and lightheadedness. Patient reports last 2 months he has been having chest palpitation and head uribe . He describes chest palpitation as intermittent chest discomfort with heart beating fast that worsened and became more frequent for the last few days. The chest palpitation last few minutes and is associated with lightheadedness (head uribe). The chest discomfort worsened with upright position and relieved when lying down. Patient denies falls, dizziness, chest pain, shortness of breath, headache, fever and diaphoresis. No recent sick contact and flu-like symptoms. His primary provider is Dr. Santos. He was recently evaluated for palpitations and was referred to contract implementation analyst. Patient said that he has an upcoming appointment for . ED Course: -Initial vitals were BP 139/82, pulse 78, RR 18, temp 97.6 (afebrile), O2 sat 96% on room air. -Labs shows normal WBC, no anemia or thrombocytopenia. Low normal potassium, normal renal function, and undetected Troponin. TSH normal. UA without UTI. -Imaging included EKG demonstrates sinus rhythm, HR 82, occasional PVC's and multiple trigeminy, but no acute ST changes. CXR No pneumonia or pulmonary edema However, while in ED, he was noted to have frequent and prolonged arrhythmia resembling VT. Cardiology was consulted by ED physician who recommended admission and AMIODARONE GGT. -In the ED, patient was given 1 L NS, amiodarone GGT, 40 meq KCl, Mag -Patient was admitted for tachyarrhythmia management. 02/19/2025 patient currently seen in telemetry. Labs reviewed and patient examined at the bedside. Patient's chest pain has improved. Was on amiodarone drip. Now changed to diltiazem 180mg PO qd based on cardiology recommendations. BP127/90, VA:62. Will continue to monitor. Exam Vital Signs Temp Pulse Resp BP Pulse Ox O2 Del Method 97.1 F 86 18 108/69 98 Room Air 02/19/25 04:00 02/19/25 06:22 02/19/25 04:00 02/19/25 06:22 02/19/25 04:00 02/19/25 04:00 Narrative Exam General: No acute distress, well nourished, AAO x3 Eye: PERRL, EOMI, normal conjunctiva, no scleral icterus HENT: Normocephalic, atraumatic, hearing intact to conversation at normal volume, moist oral mucosa Neck: Supple, non-tender, no JVD, no lymphadenopathy Lungs: Non-labored respirations, symmetric chest rise, Clear to auscultate bilaterally, No wheezing, rhonchi, crackles Heart: Peripheral pulses intact bilaterally, Regular Rate and Rhythm. Abdomen: Soft, non-tender, non-distended, no palpable masses Musculoskeletal: Normal range of motion and strength, No cyanosis or edema, No visible joint swelling Skin: Skin is warm, dry, no rashes or lesions. Psychiatric: Cooperative, appropriate mood and affect, Awake and alert, not agitated Neuro: Cranial nerves II-XII grossly intact. Sensations intact to light touch. Objective Labs 02/20/25 04:47 02/19/25 09:03 Labs: Laboratory Results - last 24 hr 02/18/25 02/18/25 22:31 23:05 WBC 7.3 RBC 4.71 Hgb 14.9 Hct 42.1 MCV 89 MCH 31.6 MCHC 35.4 RDW Std Deviation 44.3 H Plt Count 158 Neut % (Auto) 60 Lymph % (Auto) 29 [place] % (Auto) 8 Eos % (Auto) 2 Baso % (Auto) 0 Neut # (Auto) 4.4 Lymph # (Auto) 2.1 [place] # (Auto) 0.6 Eos # (Auto) 0.2 Baso # (Auto) 0.0 Immature Gran # (Auto) 0.02 H Absolute Nucleated RBC 0.00 Immature Gran % 0 Nucleated RBC % 0 D-Dimer < 250 Sodium 144 Potassium 3.5 Chloride 106 Carbon Dioxide 25.7 Anion Gap 12 BUN 12 Creatinine 0.9 Estim Creat Clear Calc 92.2 eGFR > 60 BUN/Creatinine Ratio 13 Glucose 127 H Calculated Osmolality 288 Calcium 9.5 Corrected Calcium 9.5 Magnesium 1.9 Total Bilirubin 0.5 AST 27 ALT 21 Alkaline Phosphatase 82 Troponin I < 0.020 B-Natriuretic Peptide 31 Total Protein 6.7 Albumin 4.2 Globulin 2.5 Albumin/Globulin Ratio 1.7 TSH 1.74 Ur Collection Type Voided Urine Color Yellow Urine Clarity Clear Urine pH 6.0 Ur Specific [place] 1.026 Urine Protein Negative Urine Glucose (UA) Negative Urine Ketones Negative Urine Blood Negative Urine Nitrite Negative Urine Bilirubin Negative Urine Urobilinogen (Auto) Negative Ur Leukocyte Esterase Negative Urine RBC 1 Urine WBC < 1 Ur Squamous Epith Cells 0 Urine Bacteria None Urine Opiates Screen Negative Urine Fentanyl Screen Negative Ur Barbiturates Screen Negative U Amphetamin/Meth Scrn Negative U Benzodiazepines Scrn Negative U Cocaine Metab Screen Negative U Marijuana (THC) Screen Negative Ethyl Alcohol < 3.0 Quality Measures Quality Measures none Assessment & Plan Assessment Current Active Medications: Generic Name Dose Route Start Last Admin Trade Name Freq PRN Reason Stop Dose Admin Acetaminophen 650 mg 02/19/25 00:27 Acetaminophen 325 Mg Tablet PO 03/21/25 00:26 Q4HR PRN FEVER >101 Heparin Sodium (Porcine) 5,000 unit 02/19/25 06:00 02/19/25 05:12 Heparin Sod Inj 5000 Unit/Ml Vial SC 03/05/25 05:59 5,000 unit Q8HR AMADO Administration Amiodarone HCl/Dextrose 360 mg in 200 mls @ 16.667 mls/hr 02/18/25 23:41 02/19/25 06:22 Nexterone Ivpb IV 02/19/25 23:40 16.667 mls/hr .Q12H AMADO Administration Plan Mr. Luis is a 64 year-old male with no significant past medical history who presented to the ED on 02/18/2025 with with chief complaint of chest palpitation and lightheadedness. Admitted for tachyarrhythmia management. # Symptomatic tachyarrhythmia -Symptom include worsening intermittent chest palpitation for the last 2months with positional lightheadedness. -Causes of tachyarrhythmia may be stimulants for which pt reports taking 3-4 cups of coffee/day VS Electrolyte disturbances as pt K low normal and Mg is low. VS underlying heart disease but patient does not have history or risk factor like DM, HTN, HLD, VS Not cause by hyperthyroidism as TSH normal VS systemic causes unlikely as pt was afebrile,non-septic, no leukocytosis, vitals stable. -No chest pain reported although sustained monomorphic sustained tachyarrhythmia, suspicion for ventricular tachycardia on telemetry. -On admission, EKG shows normal sinus rhythm at 82, no acute ST segment changes occasional ventricular premature complexes. Troponin undetected. ED doctor consulted cardiology Dr. Link, repeat EKG showed normal sinus rhythm, however on telemetry noted to have frequent and prolonged arrhythmia resembling VT. Amusement Ride Inspector recommended admission and AMIODARONE GGT protocol initiated. Given magnesium and potassium. Patient remained hemodynamically stable. -CXR shows no pneumonia or pulmonary edema -Troponin: <0.02 Plan: -Discontinued amiodarone drip. - Started on Diltiazem 180mg PO qd based on cardiology recommendations. - Pending ECHO - Tylenol as needed for pain - Cardiology will follow patient, appreciate recommendations - Maintain potassium >4.0 and magnesium >2.0 Hospital management: Lines: peripheral IV Diet: NPO DVT prophylaxis: Heparin SC Disposition: tele tachyarrhythmia management CODE STATUS: Full code Attending Provider Attestation/Addendum Patient seen and examined with resident physician Dr. Alvarez. Note reviewed, agree with findings and recommendations. Admitted with tachyarrhythmia-probably related to electrolyte imbalance Versus caffeine intake. Patient stated he drinks more than 4 to 5 cups of coffee a day. Noted cardiology recommended Cardizem. Will monitor overnight and await cards recommendations. Replace electrolytes. He will need EP study as an outpatient.
[2025-02-19 09:46] LABS: Basophils # (Auto) 0.0 Thou/mm3 (0.0-0.2); Basophils % (Auto) 0 % (0-2.5); Eosinophils # (Auto) 0.1 Thou/mm3 (0.0-0.5); Eosinophils % (Auto) 2 % (0-10); Hematocrit 42.1 % (41.0-53.0); Hemoglobin 14.5 g/dL (13.5-16.0); Immature Granulocytes Auto 0.01 Thou/mm3 (0.00-0.00); Lymphocytes # (Auto) 1.4 Thou/mm3 (1.0-4.8); Lymphocytes % (Auto) 23 % (10-50); Mean Corpuscular HGB Conc 34.4 g/dl (31.0-37.0); Mean Corpuscular Hemoglobin 31.3 pg (25.0-35.0); Mean Corpuscular Volume 91 fL (80-100); Monocytes # (Auto) 0.5 Thou/mm3 (0.0-0.8); Monocytes % (Auto) 7 % (0-12); Neutrophils # (Auto) 4.1 Thou/mm3 (1.8-7.7); Neutrophils % (Auto) 67 % (37-80); Nucleated Red Blood Cell # 0.00 Thou/mm3 (0.00-0.00); Nucleated Red Blood Cell % 0 /100 WBC (0); Platelet Count 150 Thou/mm3 (140-440); RDW Standard Deviation 44.6 fL (35.1-43.9); Red Blood Count 4.64 Miln/mm3 (4.50-5.90); White Blood Count 6.2 Thou/mm3 (3.8-10.6)
[2025-02-19 10:17] LABS: Glucose Estimated Average 103 mg/dL (80-131); Hemoglobin A1C 5.2 % Hgb (4.8-6.0)
[2025-02-19 10:28] LABS: Alanine Aminotransferase 19 U/L (10-49); Albumin, Serum 4.0 gm/dL (3.4-4.8); Albumin/Globulin Ratio 1.7 (1.2-2.2); Alkaline Phosphatase 62 U/L (46-116); Anion Gap 9 (7-16); Aspartate Amino Transferase 23 U/L (0-34); BUN/Creatinine Ratio 8 Ratio (12-20); Bilirubin,Total 0.6 mg/dL (0.3-1.2); Blood Urea Nitrogen 7 mg/dL (9-23); Calcium 8.8 mg/dL (8.3-10.6); Calcium (Corrected) 8.8 mg/dL (8.5-10.1); Carbon Dioxide 27.4 mMol/L (20.0-31.0); Cardiac Risk Estimate 4.4 RATIO (4.0-6.7); Chloride 108 mMol/L (98-107); Cholesterol 170 mg/dL (132-200); Creatinine (Component) 0.9 mg/dL (0.6-1.3); Estimated Creatinine Clearance 100.5 mL/min (>60); Globulin 2.3 gm/dL (2.3-3.5); Glucose 93 mg/dL (74-106); HDL Cholesterol 39 mg/dL (40-60); LDL Cholesterol,Calculated 105 mg/dL (0-130); Magnesium 2.2 mg/dL (1.6-2.6); Osmolality,Calculated 284 (275-295); Potassium 4.2 mMol/L (3.4-5.1); Sodium 144 mMol/L (136-145); Total Protein 6.3 gm/dL (5.7-8.2); Triglycerides 132 mg/dL (30-150); Troponin I < 0.020 ng/mL (0.0-0.045); eGFR > 60 See Note
--- NOTE | 2025-02-19 11:50 | PC.SS ---
Patient Ovidio Luis a 64 Year old male admitted for Arrhythmia/Palpitations. SS met with patient at bedside to discuss discharge plan and verify demographic information. Patient reports he lives at home with is , Marcela Luis who patient reports is his surrogate decision maker,[phone]. Patient reports that prior to admission he did not utilize any source of DME to assist with ambulation. Patient is able to complete all ADL's independently. [facility] Patient's PCP is Dr. Elsa Bynum. Patient reports he was going to see a heel stiffener next week. At time of discharge the patient wishes to return home. will provide transportation. Discharge plan: Home Next of kin: Marcela PCP: Dr. Hunter
--- NOTE | 2025-02-19 13:30 | ESCONSULT_ITS ---
<Statement entered by Pool Link MD - 02/20/25 17:55> I personally examined the patient reviewed the consultation report and was present during the examination of the patient and evaluation. The patient 64-year-old male who has no major medical problems came to the hospital with symptomatic episodes of monomorphic ventricular tachycardia noted to lead EKG but appears to be left bundle morphology based on the PVCs patient was treated with IV amiodarone bolus and infusion subsequently ventricular dysrhythmias resolved. History suggest that these are exertional related ventricular tachycardias. 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 Recommended to discontinue amiodarone and start on calcium channel blockers Cardizem CD 180 mg daily. These arrhythmias do respond to CCB's and beta- blockers. The patient develops ventricular tachycardia and adenosine can be tried which can convert them to sinus rhythm. Personally examined evaluate the patient with PGY 2 Dr. Mike Rebolledo MD agree with the treatment plan recommendation as documented will monitor the patient as an outpatient will require workup for ischemic heart disease including stress test and if he has recurrent ventricular dysrhythmias may consider EP referral for ablation and EP study. If the patient remains asymptomatic free of arrhythmias will discharge home in 24 to 48 hours HPI Data of Consult Consult date: 02/19/25 Requesting Physician: Teo Suarez MD Admitting Provider: Brent Frias MD Attending Provider: Pool Link MD Primary Care Provider: Misa Santos MD Consult Narrative Reason for consult: Tachyarrythmia History of present illness: 64-year-old male with no past medical history presents to the ED due to lightheadedness with associated chest palpitations. He describes having the symptoms for the past 2 months associated with exertion. Feel chest palpitations and chest pressure/discomfort that has become more frequent in the past few days as well as associated lightheadedness. Symptoms are usually present when patient is at work or exerting himself. Patient drinks 3-4 caffeinated beverages every day, however denies alcohol use or cigarette use but states prior chewing tobbaco use. While in the ED patient was noted to have prolonged sustained tachyarrhythmia possibly ventricular tachycardia was started on amiodarone drip. Patient denying falls, headache, shortness of breath, fever, diaphoresis, leg swelling, PND, orthopnea. ED course: BP 139/82, HR 78 bpm, saturating 96% room air. EKG shows sinus rhythm with a heart rate of [address] changes, negative troponins, BNP. In the ED was noted to have frequent prolonged arrhythmia presumably ventricular tachycardia seen on telemetry strip not on EKG. PMHx: As above SX Hx: Appendectomy, hernia repair, bilateral arthroscopies, Social Hx: Denies alcohol use, denies illicit substances including THC, used to chew tobacco. FH X: Both parents with congestive heart failure Cardiology was consulted for tachyarrhythmia. cc:: cc: Teo Suarez MD Review of Systems Review of Systems Systems Reviewed: All systems reviewed, normal except as documented Exam Vital Signs Temp Pulse Resp BP Pulse Ox O2 Del Method 97.0 F 54 L 14 115/76 96 Room Air 02/19/25 12:00 02/19/25 12:00 02/19/25 12:00 02/19/25 12:00 02/19/25 12:02/19/25 12:00 Narrative Exam Physical Exam GENERAL: NAD, AAOx3 HEENT: Moist mucosa. Eyes open, symmetrical, & clear CARDIO: Heart RRR, no obvious murmurs PULM: No noted coughing/dyspnea CTA B/L, no R/W/R GI: Abdomen soft, nondistended, no pain on palpation. BSx4 SKIN/MSK/EXT: No wounds/rashes/edema/amputations, no pain on palpation. Pedal pulses present B/L NEURO: AAOx3, no focal neuro deficits, able to move all 4 extremities Results Labs 02/19/25 09:03 02/19/25 09:03 Labs: Short CBC 02/18/25 02/19/25 Range/Units 22:31 09:03 WBC 7.3 6.2 (3.8-10.6) Thou/mm3 Hgb 14.9 14.5 (13.5-16.0) g/dL Hct 42.1 42.1 (41.0-53.0) % Plt Count 158 150 (140-440) Thou/mm3 BMP 02/18/25 02/19/25 22:31 09:03 Sodium 144 144 Potassium 3.5 4.2 D Chloride 106 108 H Carbon Dioxide 25.7 27.4 BUN 12 7 L Creatinine 0.9 0.9 Glucose 127 H 93 Calcium 9.5 8.8 Cardiac Enzymes 02/18/25 02/19/25 Range/Units 22:31 09:03 Troponin I < 0.020 < 0.020 (0.0-0.045) ng/mL Liver Function 02/18/25 02/19/25 Range/Units 22:31 09:03 Total Bilirubin 0.5 0.6 (0.3-1.2) mg/dL AST 27 23 (0-34) U/L ALT 21 19 (10-49) U/L Alkaline Phosphatase 82 62 D (46-116) U/L Albumin 4.2 4.0 (3.4-4.8) gm/dL Urine 02/18/25 Range/Units 23:05 Urine Color Yellow (Lt Yel-Yel) Urine Clarity Clear (Clear/Hazy) Urine pH 6.0 (5.0-7.0) Ur Specific [place] 1.026 (1.001-1.035) Urine Protein Negative (Neg - Trace) Urine Glucose (UA) Negative (Negative) Quality Measures Quality Measures none Medications Home Medications and Allergies Home Medications ?Medication ?Instructions ?Recorded ?Confirmed ?Type aspirin 81 mg tablet 81 mg PO QDAY 02/19/2502/19 History multivitamin (Daily Multi-Vitamin 1 tab PO QDAY 02/19/25 History tablet) Allergies Allergy/AdvReac Type Severity Reaction Status Date / Time diphenhydramine (From Allergy Severe Agitated Verified 02/18/25 22:11 Benadryl) Visit Medications Acetaminophen (Acetaminophen 325 Mg Tablet) 650 mg PO Q4HR PRN PRN Reason: FEVER >101 Stop: 03/21/25 00:26 Diltiazem HCl (Diltiazem Cd 180 Mg Capcr) 180 mg PO QDAY [facility] Stop: 03/21/25 13:29 Heparin Sodium (Porcine) (Heparin Sod Inj 5000 Unit/Ml Vial) 5,000 unit SC Q8HR AMADO Stop: 03/05/25 05:59 Last Admin: 02/19/25 05:12 Dose: 5,000 unit Discontinued Medications Sodium Chloride (Ns) 1,000 mls @ 999 mls/hr IV .Q1H1M ONE Stop: 02/19/25 00:20 Last Infusion: 02/19/25 00:28 Dose: Infused Amiodarone HCl/Dextrose (Nexterone Ivpb) 150 mg in 100 mls @ 600 mls/hr IV .Q10M ONE Stop: 02/18/25 23:50 Last Infusion: 02/19/25 00:15 Dose: Infused Amiodarone HCl/Dextrose (Nexterone Ivpb) 360 mg in 200 mls @ 33.333 mls/hr IV .Q6H ONE Stop: 02/19/25 05:39 Last Admin: 02/19/25 00:16 Dose: 33.333 mls/hr Amiodarone HCl/Dextrose (Nexterone Ivpb) 360 mg in 200 mls @ 16.667 mls/hr IV .Q12H AMADO Stop: 02/19/25 23:40 Last Admin: 02/19/25 06:22 Dose: 16.667 mls/hr Magnesium Sulfate (Magnesium Sulfate Ivpb) 2 gm in 50 mls @ 25 mls/hr IV X1 ONE Stop: 02/19/25 02:30 Last Admin: 02/19/25 00:39 Dose: 25 mls/hr Potassium Chloride (Potassium Chloride 20 Meq Tabcr) 40 meq PO X1 ONE Stop: 02/19/25 00:05 Last Admin: 02/19/25 00:23 Dose: 40 meq Assessment & Plan Plan 64-year-old male with no past medical history presents to the ED due to lightheadedness with associated chest palpitations. Admitted for management of tachyarrythmia #Idiopathic right ventricular outflow tract tachycardia #Tachyarrythmia Presented with symptoms such as lightheadedness, palpitations, dizziness. symptoms present when patient exerts himself, mostly at work EKGs are NSR, Telemetry strip shows monomorphic tachyarrythmia with possible LBB No cardiac risk factors, TSH wnl, A1c 5.2, Lipid panel wnl. Troponins negative as well. Echo: Normal left ventricular size and function. Approximate ejection fraction is 60-65%. Normal Right ventricular size and function. RVSP 26mmHg. Normal tricuspid aortic valve with mild thickening with trace to mild aortic valve regurgitation. Mild pulmonic valve regurgitation. Mild tricuspid valve regurgitation. - start diltiazem 180mg qday - Dc amiodarone drip - observe for 24 hours if no symptoms can likely discharged and followed as outpatient - may require possible EP study or catheter ablation in the future if continued episodes despite medical therapy with CCBs, Beta blockers - Monitor Telemetry - Keep K>4, Mg>2 Case discussed with my attending Dr. Nikolay Rebolledo MD PGY-2 Disclaimer: Despite multiple revisions, due to the dictation software being used, the document bellow may not be free of grammatical errors including phonetic/typographic errors. However, this does not deter from our commitment to providing health care in the patient's best interest in mind.
[2025-02-19] MEDS: DILTIAZEM CD 180 MG CAPCR PO (13:56)
--- NOTE | 2025-02-19 15:34 | PC.SS ---
Rounding note: Patient is on amiodarone drip?pending cardiology evaluation. Discharge plan: Home
[2025-02-19] MEDS: ACETAMINOPHEN 325 MG TABLET 650 MG PO (16:35)
[2025-02-20] VITALS: BP 102/63; PULSE 59; PULSE 61; RESP 12; TEMP 36.1; O2SAT 98
[2025-02-20 04:00] VITALS: BP 113/69; PULSE 53; PULSE 55; RESP 18; TEMP 36.1; O2SAT 97
[2025-02-20] MEDS: HEPARIN SOD INJ 5000 UNIT/ML VIAL SC (05:58)
[2025-02-20] MEDS: ACETAMINOPHEN 325 MG TABLET 650 MG PO (06:02)
[2025-02-20 06:07] LABS: Basophils # (Auto) 0.0 Thou/mm3 (0.0-0.2); Basophils % (Auto) 0 % (0-2.5); Eosinophils # (Auto) 0.2 Thou/mm3 (0.0-0.5); Eosinophils % (Auto) 3 % (0-10); Hematocrit 40.4 % (41.0-53.0); Hemoglobin 14.1 g/dL (13.5-16.0); Immature Granulocytes Auto 0.02 Thou/mm3 (0.00-0.00); Lymphocytes # (Auto) 1.0 Thou/mm3 (1.0-4.8); Lymphocytes % (Auto) 15 % (10-50); Mean Corpuscular HGB Conc 34.9 g/dl (31.0-37.0); Mean Corpuscular Hemoglobin 31.5 pg (25.0-35.0); Mean Corpuscular Volume 90 fL (80-100); Monocytes # (Auto) 0.6 Thou/mm3 (0.0-0.8); Monocytes % (Auto) 9 % (0-12); Neutrophils # (Auto) 4.9 Thou/mm3 (1.8-7.7); Neutrophils % (Auto) 73 % (37-80); Nucleated Red Blood Cell # 0.00 Thou/mm3 (0.00-0.00); Nucleated Red Blood Cell % 0 /100 WBC (0); Platelet Count 131 Thou/mm3 (140-440); RDW Standard Deviation 43.9 fL (35.1-43.9); Red Blood Count 4.48 Miln/mm3 (4.50-5.90); White Blood Count 6.8 Thou/mm3 (3.8-10.6)
[2025-02-20 06:49] LABS: Alanine Aminotransferase 81 U/L (10-49); Albumin, Serum 3.7 gm/dL (3.4-4.8); Albumin/Globulin Ratio 1.8 (1.2-2.2); Alkaline Phosphatase 74 U/L (46-116); Anion Gap 10 (7-16); Aspartate Amino Transferase 85 U/L (0-34); BUN/Creatinine Ratio 11 Ratio (12-20); Bilirubin,Total 0.8 mg/dL (0.3-1.2); Blood Urea Nitrogen 10 mg/dL (9-23); Calcium 9.0 mg/dL (8.3-10.6); Calcium (Corrected) 9.2 mg/dL (8.5-10.1); Carbon Dioxide 27.5 mMol/L (20.0-31.0); Chloride 104 mMol/L (98-107); Creatinine (Component) 0.9 mg/dL (0.6-1.3); Estimated Creatinine Clearance 100.5 mL/min (>60); Globulin 2.1 gm/dL (2.3-3.5); Glucose 109 mg/dL (74-106); Magnesium 1.8 mg/dL (1.6-2.6); Osmolality,Calculated 281 (275-295); Phosphorous 3.4 mg/dL (2.4-5.1); Potassium 4.1 mMol/L (3.4-5.1); Sodium 141 mMol/L (136-145); Total Protein 5.8 gm/dL (5.7-8.2); eGFR > 60 See Note
[2025-02-20 08:00] VITALS: BP 129/76; PULSE 56; PULSE 63; RESP 15; TEMP 36.1; O2SAT 95
[2025-02-20 08:16] VITALS: BP 129/56; PULSE 62
[2025-02-20] MEDS: DILTIAZEM CD 180 MG CAPCR PO (08:16)
[2025-02-20] MEDS: MAGNESIUM OXIDE 400 MG TABLET PO (08:19)
--- NOTE | 2025-02-20 10:00 | ESDS_ITS ---
Planned Discharge Date 02/20/25 DS: Providers Provider Date of admission: 02/19/25 00:23 Primary care physician: Misa Santos MD Admitting Provider: Brent Frias MD Attending Provider on Admission: Misa Santos MD Consults: 02/19/25 00:20 Consult to Cardiology Stat Comment: Consult to Dr Link Consulting Provider: Pool Link Instructions: Patient with new onset sustained monomorphic ventricular tachycardia. Attending Provider on DC: James Alvarez DO Discharging Provider: James Alvarez DO DS: Diagnosis Problem List Completed Was Problem List Reviewed/Reconciled?: Yes Hospital Course Hospital Course Hospital course: Summary: 64 year-old male with no significant past medical history who presented to the ED on 02/18/2025 with with chief complaint of chest palpitation and lightheadedness. In ED, he was noted to have frequent and prolonged arrhythmia resembling VT. He was given amiodarone drip and later changed to diltiazem 180mg po qd before discharge ED Course: -Initial vitals were BP 139/82, pulse 78, RR 18, temp 97.6 (afebrile), O2 sat 96% on room air. -Labs shows normal WBC, no anemia or thrombocytopenia. Low normal potassium, normal renal function, and undetected Troponin. TSH normal. UA without UTI. -Imaging included EKG demonstrates sinus rhythm, HR 82, occasional PVC's and multiple trigeminy, but no acute ST changes. CXR No pneumonia or pulmonary edema -However, while in ED, he was noted to have frequent and prolonged arrhythmia resembling VT. Cardiology was consulted by ED physician who recommended admission and AMIODARONE GGT. -In the ED, patient was given 1 L NS, amiodarone GGT, 40 meq KCl, Mag -Patient was admitted for tachyarrhythmia management. Hospital Course: Patient was given Amiodarone drip for 1 day. and later changed to Diltiazem 180mg PO qd. ECHO (02/19/2025) showed Normal left ventricular size and function. Approximate ejection fraction is 60-65%. Normal Right ventricular size and function. RVSP 26mmHg. Normal tricuspid aortic valve with mild thickening with trace to mild aortic valve regurgitation. Mild pulmonic valve regurgitation. Mi ld tricuspid valve regurgitation. Patient was discharged with 1 week follow up with Dr. Santos and 1-2 week follow up with Technical Staff Engineer, Dr. Pool Link. Instructions: -Continue all medication as prescribed -Please follow up with Dr. Santos within one week of discharge -Please follow up with Dr. Pool Link, automotive refinisher, within 1-2 wks of discharge -If your symptoms worsen,please seek immediate medical attention and return to your nearest emergency room -If you do not have a primary care provider, you may follow up at the [facility] at [address] [place] [address] [address], [place] [address], # Symptomatic tachyarrhythmia Safe to discharge Home Time Spent with Patient Time attestation: Total time spent providing and/or coordinating discharge services: Time spent: Greater than 30 minutes Exam Vital Signs Temp Pulse Resp BP Pulse Ox O2 Del Method 97.0 F 62 15 129/56 L 95 Room Air 02/20/25 08:00 02/20/25 08:16 02/20/25 08:00 02/20/25 08:16 02/20/25 08:00 02/20/25 08:00 Narrative Exam General: No acute distress, well nourished, AAO x3 Eye: PERRL, EOMI, normal conjunctiva, no scleral icterus HENT: Normocephalic, atraumatic, hearing intact to conversation at normal volume, moist oral mucosa Neck: Supple, non-tender, no JVD, no lymphadenopathy Lungs: Non-labored respirations, symmetric chest rise, Clear to auscultate bilaterally, No wheezing, rhonchi, crackles Heart: Peripheral pulses intact bilaterally, Regular Rate and Rhythm. Abdomen: Soft, non-tender, non-distended, no palpable masses Musculoskeletal: Normal range of motion and strength, No cyanosis or edema, No visible joint swelling Skin: Skin is warm, dry, no rashes or lesions. Psychiatric: Cooperative, appropriate mood and affect, Awake and alert, not agitated Neuro: Cranial nerves II-XII grossly intact. Sensations intact to light touch. Discharge Plan Plan Patient Disposition: HOME (Self Care) Care Plan Goals: -Continue all medication as prescribed -Please follow up with Dr. Santos within one week of discharge -Please follow up with Dr. Pool Link, automotive refinisher, within 1-2 wks of discharge -If your symptoms worsen,please seek immediate medical attention and return to your nearest emergency room -If you do not have a primary care provider, you may follow up at the [facility] at [address] [place] [address] [address], [place] [address], Prescriptions/Referrals Prescriptions/Med Rec: New diltiazem HCl 180 mg Capsule,Extended Release 24hr 180 mg PO QDAY 30 Days Qty: 30 0RF Continued aspirin 81 mg tablet 81 mg PO QDAY multivitamin [Daily Multi-Vitamin] Tablet 1 tab PO QDAY Referrals: Misa Santos MD [Primary Care Provider, Nephrology] Patient/Caregiver Discharge Instructions Discharge Activity: activity as tolerated Education Materials: Ventricular Arrhythmia, Low-Salt Choices Print Language: Thai Stand Alone Forms: Christina Award Info., Patient Portal Info Letter Discharge Order Discharge Orders: Discharge (Routine); Ordered 02/20/25 Ordered By: Misa Santos Quality Discharge Quality Measures VTE prophylaxis MD Attestestation MD Attestation Patient seen and examined with resident physician Dr. Alvarez. Note reviewed, agree with findings and recommendations. Patient admitted with arrhythmias. Seen by cardiology-recommended Cardizem. Needs EP as an outpatient.
[2025-02-20 12:00] VITALS: BP 117/78; PULSE 60; PULSE 66; RESP 18; TEMP 36.1; O2SAT 96
--- NOTE | 2025-02-20 12:33 | PC.SS ---
SS follow up note; Patient will discharge home today.
== END 2025-02-20 12:03 | disposition home or self-care (01) | DRG 310 ==
LOC: SERX 23:44 → SERHOLD 02-19 00:49 → S2NX 02-19 01:05
PROVIDERS: Nurse Practitioner Family; Admitting Provider Internal Medicine; Emergency Provider Emergency Medicine; PCP Internal Medicine; Visit Provider Internal Medicine
DX: I47.20 Ventricular tachycardia, unspecified (principal); R00.2 Palpitations; Z87.891 Personal history of nicotine dependence; Z90.49 Acquired absence of other specified parts of digestive tract; Z88.8 Allergy status to other drugs, medicaments and biological substances
CPT/HCPCS: 36415; 71045; 80053; 80061; 80307; 80320; 81001; 83036; 83735; 83880; 84100; 84439; 84443; 84484; 85025; 85379; 93005; 93306; 96361; 96374; 99284; J0283; J1644; J3475; J7030; A9270; G0480

== ENCOUNTER → 2025-03-29 | Outpatient (CLI) | payer OTHER, SELFPAY ==
[2025-03-29 14:10] LABS: Collection Type, Urine Clean Catch; Squamous Epithelial Cell,Urine 0 /hpf (0-5)
[2025-03-29 14:43] LABS: Basophils # (Auto) 0.0 Thou/mm3 (0.0-0.2); Basophils % (Auto) 0 % (0-2.5); Eosinophils # (Auto) 0.0 Thou/mm3 (0.0-0.5); Eosinophils % (Auto) 0 % (0-10); Hematocrit 42.1 % (41.0-53.0); Hemoglobin 14.8 g/dL (13.5-16.0); Immature Granulocytes Auto 0.02 Thou/mm3 (0.00-0.00); Lymphocytes # (Auto) 1.3 Thou/mm3 (1.0-4.8); Lymphocytes % (Auto) 17 % (10-50); Mean Corpuscular HGB Conc 35.2 g/dl (31.0-37.0); Mean Corpuscular Hemoglobin 31.4 pg (25.0-35.0); Mean Corpuscular Volume 89 fL (80-100); Monocytes # (Auto) 0.5 Thou/mm3 (0.0-0.8); Monocytes % (Auto) 6 % (0-12); Neutrophils # (Auto) 5.5 Thou/mm3 (1.8-7.7); Neutrophils % (Auto) 75 % (37-80); Nucleated Red Blood Cell # 0.00 Thou/mm3 (0.00-0.00); Nucleated Red Blood Cell % 0 /100 WBC (0); Platelet Count 179 Thou/mm3 (140-440); RDW Standard Deviation 44.4 fL (35.1-43.9); Red Blood Count 4.71 Miln/mm3 (4.50-5.90); White Blood Count 7.4 Thou/mm3 (3.8-10.6)
[2025-03-29 14:51] LABS: Bilirubin,Urine Negative (Negative); Blood,Urine Negative (Negative); Clarity,Urine Clear (Clear/Hazy); Color,Urine Yellow (Lt Yel-Yel); Glucose, Urine Negative (Negative); Ketones,Urine Trace (Negative); Leukocyte Esterase,Urine Negative (Negative); Nitrite,Urine Negative (Negative); PH,Urine 5.5 (5.0-7.0); Protein,Urine Negative (Neg - Trace); RBC,Urine 3 /hpf (0-3); Specific Gravity,Urine 1.026 (1.001-1.035); Urobilinogen,Urine Negative mg/dL (0.0-1.0); WBC,Urine < 1 /hpf (0-5)
[2025-03-29 14:52] LABS: Glucose Estimated Average 103 mg/dL (80-131); Hemoglobin A1C 5.2 % Hgb (4.8-6.0)
[2025-03-29 14:53] LABS: Prostate Specific Antigen 4.75 ng/mL (0-4.00)
[2025-03-29 14:54] LABS: Alanine Aminotransferase 30 U/L (10-49); Albumin, Serum 4.9 gm/dL (3.4-4.8); Albumin/Globulin Ratio 2.6 (1.2-2.2); Alkaline Phosphatase 62 U/L (46-116); Anion Gap 9 (7-16); Aspartate Amino Transferase 42 U/L (0-34); BUN/Creatinine Ratio 15 Ratio (12-20); Bilirubin,Total 0.9 mg/dL (0.3-1.2); Blood Urea Nitrogen 17 mg/dL (9-23); Calcium 9.7 mg/dL (8.3-10.6); Calcium (Corrected) 9.7 mg/dL (8.5-10.1); Carbon Dioxide 27.8 mMol/L (20.0-31.0); Cardiac Risk Estimate 4.5 RATIO (4.0-6.7); Chloride 105 mMol/L (98-107); Cholesterol 214 mg/dL (132-200); Creatinine (Component) 1.1 mg/dL (0.6-1.3); Globulin 1.9 gm/dL (2.3-3.5); Glucose 91 mg/dL (74-106); HDL Cholesterol 48 mg/dL (40-60); LDL Cholesterol,Calculated 142 mg/dL (0-130); Osmolality,Calculated 284 (275-295); Potassium 4.4 mMol/L (3.4-5.1); Sodium 142 mMol/L (136-145); Thyroid Stimulating Hormone 1.05 uIU/mL (0.55-4.78); Total Protein 6.8 gm/dL (5.7-8.2); Triglycerides 121 mg/dL (30-150); Uric Acid 6.6 mg/dL (3.7-9.2); eGFR > 60 See Note
[2025-03-29 14:58] LABS: Vitamin B12 476 pg/mL (211-911); Vitamin D 25 Hydroxy Total 39.6 ng/mL (7.3-40.2)
== END | disposition home or self-care (01) ==
LOC: COPL 13:05
PROVIDERS: PCP Internal Medicine; Referring Provider Internal Medicine; Visit Provider Internal Medicine
DX: Z00.00 Encounter for general adult medical examination without abnormal findings (principal)
CPT/HCPCS: 36415; 80053; 80061; 81001; 82306; 82607; 83036; 84153; 84443; 84550; 85025